=== PATIENT | female | born 1955 | race Caucasian/White ===

== ENCOUNTER 2021-06-20 17:06 | Emergency (ER) | payer OTHER ==
--- NOTE | 2021-06-20 17:11 | NUR ---
PT CALLED 1ST TIME, NO ANSWER. MADE AWARE.
--- NOTE | 2021-06-20 18:07 | NUR ---
PATIENT LEFT WITHOUT BEING SEEN BY . NO FURTHER CARE PROVIDED FOR PATIENT.
[2021-06-20] MEDS ORDERED: IBUP-2213 PO (23:43)
[2021-06-20] MEDS ORDERED: ACET-8386 PO (23:43)
== END 2021-06-20 18:01 | disposition left against medical advice (07) ==
LOC: MED 17:06
DX: Z53.21 Procedure and treatment not carried out due to patient leaving prior to being seen by health care provider (principal)

== ENCOUNTER 2021-06-20 20:35 | Emergency (ER) | payer OTHER ==
[~2021-06-20] VITALS: Ht 157.5 cm; Wt 63.5 kg
[2021-06-20 20:42] VITALS: BP 122/80
--- NOTE | 2021-06-20 20:53 | NUR ---
PATIENT TO LOBBY
--- NOTE | 2021-06-20 23:30 | NUR ---
PT. IS A 66 Y/O FEMALE THAT CAME INTO ED WITH C/O OF RIGHT RIB PAIN. PT. STATES THAT SHE FELL YESTERDAY OUT OF HER BED AND TUCKED HER ELBOW IN. PT. RATES PAIN AT 7/10 ON THE PAIN SCALE AT THIS TIME. WHEN ASKED TO DESCRIBE PAIN, PT. STATES IT HURTS UPON IN[place] AND THE PAIN IS ONLY LOCALIZED IN HER RIGHT UPPER RIB. DENIES N/V/D/FEVER. AAOX4 PMH: DENIES ALLERGIES: NKA
--- NOTE | 2021-06-20 23:32 | NUR ---
Dr. Pickens examining patient.
[2021-06-20] MEDS ORDERED: ACET-8386 PO (23:43)
[2021-06-20] MEDS ORDERED: IBUP-2213 PO (23:43)
[2021-06-21 00:13] VITALS: BP 122/80
--- NOTE | 2021-06-21 00:13 | NUR ---
Patient discharged with v/s stable. Written and verbal after care instructions given and explained. Patient alert, oriented and verbalized understanding of instructions. Ambulatory with steady gait. All questions addressed prior to discharge. ID band removed. Patient advised to follow up with PMD. Rx of ICENTIVE SPIROMETER, IBUPROFEN, AND NORCO given. Patient educated on indication of medication including possible reaction and side effects. Opportunity to ask questions provided and answered.
== END 2021-06-21 00:13 | disposition home or self-care (01) ==
LOC: MED 20:35
DX: S22.31XA Fracture of one rib, right side, initial encounter for closed fracture (principal); W18.39XA Other fall on same level, initial encounter; Y93.89 Activity, other specified; Y92.89 Other specified places as the place of occurrence of the external cause; Y99.8 Other external cause status
CPT/HCPCS: 71101; 99283